=== PATIENT | female | born 1995 | race Caucasian/White ===

== ENCOUNTER 2016-12-23 13:05 | Emergency (ER) | payer OTHER ==
[2016-12-23 13:09] VITALS: BP 135/83; PULSE 118; TEMP 98; BMI 20.1
[2016-12-23] MEDS ORDERED: TETANUS AND DIPHTHERIA TOXOID 0.5 ML DISP.SYRIN IM ONE (14:28)
--- NOTE | 2016-12-23 14:37 | PDOC ---
Post Exposure HPI - General Chief Complaint: Blood/Body Fluid Exposure SJR Stated Complaint: NEEDLE PRICK Time Seen by Provider: 12/23/16 14:09 History Source: Patient Exam Limitations: No Limitations - History of Present Illness Initial Comments: 12/23/16 14:29 21 yr female accidentaly stuck by a needle to the left thumb while wearing gloves while drawing blood at 's office. The source pt is Hep B positive . Pt has no PMHX no allergies. LMP is now. Timing: just prior to arrival Severity: mild Exposed Location: Left: Finger(s) (thumb) Assessing Significant Risk PEP: Yes Percutaneous Past History - Past Medical History Allergies/Adverse Reactions: Allergies Allergy/AdvReac Type Severity Reaction Status Date / Time No Known Allergies Allergy Verified 12/23/16 13:40 Home Medications: Ambulatory Orders Emtricitabine/Tenofovir (Tdf) [Truvada 200 mg-300 mg Tablet] 1 each PO DAILY # 28 tablet 12/23/16 Raltegravir [Isentress] 400 mg PO BID #46 tab 12/23/16 Other medical history: denies - Suicide/Smoking/Psychosocial Hx Smoking History: Never smoked Information on smoking cessation initiated: No Hx Alcohol Use: No Drug/Substance Use Hx: No Substance Use Type: None Review of Systems - Review of Systems Able to Perform ROS?: Yes Is the patient limited German proficient: No Constitutional: No: Symptoms Reported HEENTM: No: Symptoms Reported Respiratory: No: Symptoms reported Cardiac (ROS): No: Symptoms Reported ABD/GI: No: Symptoms Reported : No: Symptoms Reported Musculoskeletal: No: Symptoms Reported Integumentary: Yes: See HPI *Physical Exam - Vital Signs Last Vital Signs Temp Pulse Resp BP Pulse Ox 98 F 118 H 19 135/83 100 12/23/16 13:07 12/23/16 13:07 12/23/16 13:07 12/23/16 13:07 12/23/16 13:07 - Physical Exam General Appearance: Yes: Nourished, Appropriately Dressed HEENT: positive: EOMI, CELINE, Normal ENT Inspection, TMs Normal, Pharynx Normal Neck: positive: Supple. negative: Tender Respiratory/Chest: positive: Lungs Clear, Normal Breath Sounds. negative: Chest Tender Cardiovascular: positive: Regular Rhythm, Regular Rate Gastrointestinal/Abdominal: positive: Normal Bowel Sounds, Soft Musculoskeletal: positive: Normal Inspection Extremity: positive: Normal Capillary Refill, Normal Inspection, Normal Range of Motion, Other (left thumb with superficial puncture wound no bleeding, nv intact FROM ) Integumentary: positive: Normal Color, Dry, Warm Neurologic: positive: Fully Oriented, Alert, Normal Mood/Affect, Normal Response , Motor Strength 5/5 Post Exposure - ED Protocol - Exposure Treatment Washing/Decontamination: Soap/Water Source Patient HIV Status:: Unknown Is PEP indicated?: Yes Prophylaxis for HIV discussed?: Yes Prophylaxis given?: Yes Baseline bloods drawn prophylaxis:(use *Exposure-Hosp Emp): Yes Additional Treatment:: DT, HBIG - Referrals Employee Referred to Infectious Disease Specialist:: Araceli Love Medical Decision Making - Medical Decision Making 12/23/16 15:11 discussed case with would like patient to receive HIV prophylaxsis medications and immune globulin for Hep B I have discussed this with the patient and the labs will be drawn and the medication will be started pt will soak the finger in betadine solution 12/23/16 15:16 *DC/Admit/Observation/Transfer Diagnosis at time of Disposition: Needlestick injury of finger Qualifiers: Encounter type: initial encounter Qualified Code(s): S61.239A - Puncture wound without foreign body of unspecified finger without damage to nail, initial encounter - Discharge Dispostion Disposition: HOME Condition at time of disposition: Good - Prescriptions Prescriptions: Raltegravir [Isentress] 400 mg PO BID #46 tab Emtricitabine/Tenofovir (Tdf) [Truvada 200 mg-300 mg Tablet] 1 each PO DAILY # 28 tablet - Referrals Referrals: Araceli Love MD [Staff Physician] - - Patient Instructions Printed Discharge Instructions: How to Handle Body Fluid Exposure -- Healthcare Worker Additional Instructions: 12/23/16 1. As discussed, a screening test for the HIV virus was performed today. Your HIV test is Negative (normal). 2. As discussed, if you engaged in high risk-behavior in the three (3) months prior to this test, you could still potentially be at risk and you will need to be re-tested. 3. As discussed, avoid any high risk behavior (such as unprotected sex or needle-sharing) in the future to minimize the chances of arun HIV. follow with Dr.Bobdee the infectious disease doctor next week call this week to set up appointment take the medication as prescribed to prevent HIV transmission keep he wound clean and dry soap and water, banadid - Post Discharge Activity Forms/Work/School Notes: Back to Work
[2016-12-23] MEDS ORDERED: HEPATITIS B IMMUNE GLOBULIN 5 ML VIAL IM ONE (14:57)
[2016-12-23 15:08] LABS: BASOPHIL 0.5 % (0-2.0); EOSINOPHIL 0.5 % (0-4.5); MCH 29.1 pg (25.7-33.7); MCHC 33.7 g/dl (32.0-36.0); MEAN CELL VOLUME 86.3 fl (80-96); MEAN PLT VOLUME 8.3 fl (7.5-11.1); NEUTROPHILS 74.6 % (42.8-82.8); PLATELET COUNT 269 K/MM3 (134-434); RDW 13.8 % (11.6-15.6); WHITE BLOOD COUNT 6.3 K/mm3 (4.0-10.0)
[2016-12-23 15:48] LABS: ALBUMIN 4.4 g/dl (3.4-5.0); ANION GAP 8 (8-16); CALCIUM 9.8 mg/dL (8.5-10.1); CO2 29 mmol/L (21-32); CREATININE 0.7 mg/dL (0.55-1.02); GLUCOSE,RANDOM 94 mg/dL (74-106); SGOT/AST 15 U/L (15-37); SGPT/ALT 20 U/L (12-78); URIC ACID 4.6 mg/dL (2.6-7.2)
[2016-12-23 15:49] LABS: HIV 1 & 2 AB NEGATIVE; HIV 1 AGp24 NEGATIVE
[2016-12-23 15:51] LABS: CHOLESTEROL 149 mg/dL (50-200); PHOSPHOROUS 3.6 mg/dL (2.5-4.9)
[2016-12-23 15:53] LABS: ALK PHOS 52 U/L (45-117); BILIRUBIN,TOTAL 1.3 mg/dL (0.2-1.0); LDH 153 U/L (84-246)
[2016-12-25 06:07] LABS: HEP B SURFACE AB Reactive (.)
== END 2016-12-23 16:07 | disposition home or self-care (01) ==
LOC: JERFT 13:05
PROC: 3E0234Z Introduction of Serum, Toxoid and Vaccine into Muscle, Percutaneous Approach (ICD-10-PCS; principal; 2016-12-23)
PROC: 3E0234Z Introduction of Serum, Toxoid and Vaccine into Muscle, Percutaneous Approach (ICD-10-PCS; 2016-12-23)
DX: S61.032A Puncture wound without foreign body of left thumb without damage to nail, initial encounter (principal); Z77.21 Contact with and (suspected) exposure to potentially hazardous body fluids; W46.1XXA Contact with contaminated hypodermic needle, initial encounter; Y93.F9 Activity, other caregiving; Y92.531 Health care provider office as the place of occurrence of the external cause
CPT/HCPCS: 36415; 80053; 82465; 82977; 83615; 84100; 84478; 84550; 85025; 86704; 86706; 86803; 87340; 87389; 99281-25